=== PATIENT | female | born 1990 | race Caucasian/White ===

== ENCOUNTER 2021-12-08 21:24 | Emergency (ER) | payer SELFPAY ==
[~2021-12-08] VITALS: Ht 163 cm; Wt 91.0 kg
--- NOTE | 2021-12-08 21:59 | ED Cardiac General ---
History of Present Illness General Chief Complaint: Cardiac/General Problems Stated Complaint: HIGH HEART RATE History of Present Illness Date Seen by Provider: Dec 08, 2021 Time Seen by Provider: 21:58 Initial Comments 31-year-old female with no pertinent PMH, is here with complaints of tachycardia. Patient noticed her heart rate on her watch has been going up to 110, and she had 1 episode where it went to 130. Patient had COVID in June of this year, and has had intermittent tachycardia which lasts about a second or 2. Patient has not seen her PCP or cardiology about this. Patient has no prior cardiac history. Patient denies chest pain, fever, abdominal pain, thyroid disorder, nausea and vomiting, diaphoresis, dizziness. Allergies and Home Medications Allergies Coded Allergies: No Known Drug Allergies (Unverified , 12/08/21) Patient Home Medication List Home Medication List Reviewed: Yes Nitrofurantoin Macrocrystal (Nitrofurantoin) 100 Mg Capsule, 100 MG PO BID Prescribed by: IZZY HOFFMAN MD on 12/08/21 7042 Review of Systems Review of Systems Constitutional: no symptoms reported EENTM: No Symptoms Reported Respiratory: No Symptoms Reported Cardiovascular: Palpitations Gastrointestinal: No Symptoms Reported Genitourinary: No Symptoms Reported Musculoskeletal: no symptoms reported Skin: no symptoms reported Psychiatric/Neurological: No Symptoms Reported Endocrine: No Symptoms Reported Hematologic/Lymphatic: No Symptoms Reported Past Ilvmfpf-Drbtns-Pwpczl Hx Patient Social History Tobacco Use?: No Substance use?: No Alcohol Use?: No Pt feels they are or have been: No Immunizations Up To Date Influenza Vaccine Up-to-Date: No; Not Current First/Initial COVID19 Vaccinat: OCTOBER 2020 Second COVID19 Vaccination Alexis: NOVEMBER 2020 COVID19 Vaccine Scallop Cutter: VIVEK Past Medical History Surgery/Hospitalization HX: COVID- 19 Physical Exam Vital Signs Vital Signs - First Documented 12/08/21 21:48 Temp 36.8 Pulse 96 Resp 16 B/P (MAP) 143/78 (99) Capillary Refill : Height, Weight, BMI Height: '" Weight: lbs. oz. kg; BMI Method: General Appearance: No Apparent Distress, WD/WN HEENT: PERRL/EOMI, TMs Normal Neck: Full Range of Motion, Normal Inspection, Non Tender, Supple Respiratory: Chest Non Tender, Lungs Clear, Normal Breath Sounds Cardiovascular: Regular Rate, Rhythm, No Edema, No Murmur, Normal Peripheral Pulses Gastrointestinal: Normal Bowel Sounds, Non Tender, Soft Neurologic/Psychiatric: Alert, Oriented x3, No Motor/Sensory Deficits, Normal Mood/Affect Skin: Normal Color Progress/Results/Core Measures Results/Orders Lab Results Laboratory Tests Test 12/08/21 21:59 12/08/21 22:28 Range/Units White Blood Count 7.4 4.3-11.0 10^3/uL Red Blood Count 4.46 3.80-5.11 10^6/uL Hemoglobin 11.6 11.5-16.0 g/dL Hematocrit 36 35-52 % Mean Corpuscular Volume 81 80-99 fL Mean Corpuscular Hemoglobin 26 25-34 pg Mean Corpuscular Hemoglobin Concent 32 32-36 g/dL Red Cell Distribution Width 14.2 10.0-14.5 % Platelet Count 286 130-400 10^3/uL Mean Platelet Volume 10.2 9.0-12.2 fL Immature Granulocyte % (Auto) 0 % Neutrophils (%) (Auto) 55 42-75 % Lymphocytes (%) (Auto) 33 12-44 % Monocytes (%) (Auto) 10 0-12 % Eosinophils (%) (Auto) 1 0-10 % Basophils (%) (Auto) 0 0-10 % Neutrophils # (Auto) 4.1 1.8-7.8 10^3/uL Lymphocytes # (Auto) 2.5 1.0-4.0 10^3/uL Monocytes # (Auto) 0.7 0.0-1.0 10^3/uL Eosinophils # (Auto) 0.1 0.0-0.3 10^3/uL Basophils # (Auto) 0.0 0.0-0.1 10^3/uL Immature Granulocyte # (Auto) 0.0 0.0-0.1 10^3/uL Sodium Level 140 135-145 MMOL/L Potassium Level 3.5 L 3.6-5.0 MMOL/L Chloride Level 104 98-107 MMOL/L Carbon Dioxide Level 22 21-32 MMOL/L Anion Gap 14 5-14 MMOL/L Blood Urea Nitrogen 6 L 7-18 MG/DL Creatinine 0.70 0.60-1.30 MG/DL Estimat Glomerular Filtration Rate 117 BUN/Creatinine Ratio 9 Glucose Level 90 70-105 MG/DL Calcium Level 9.3 8.5-10.1 MG/DL Corrected Calcium 9.1 8.5-10.1 MG/DL Magnesium Level 1.8 1.6-2.4 MG/DL Total Bilirubin 0.9 0.1-1.0 MG/DL Aspartate Amino Transf (AST/SGOT) 17 5-34 U/L Alanine Aminotransferase (ALT/SGPT) 22 0-55 U/L Alkaline Phosphatase 59 40-136 U/L Troponin I < 0.028 <0.028 NG/ML Total Protein 7.2 6.4-8.2 GM/DL Albumin 4.3 3.2-4.5 GM/DL Thyroid Stimulating Hormone (TSH) 2.47 0.35-4.94 UIU/ML Free Thyroxine 1.32 0.70-1.48 NG/DL Serum Test, Qualitative NEGATIVE NEGATIVE Serum Alcohol < 10 <10 MG/DL Urine Color YELLOW Urine Clarity CLEAR Urine pH 6.5 5-9 Urine Specific [place] <=1.005 1.016-1.022 Urine Protein NEGATIVE NEGATIVE Urine Glucose (UA) NEGATIVE NEGATIVE Urine Ketones 2+ H NEGATIVE Urine Nitrite NEGATIVE NEGATIVE Urine Bilirubin NEGATIVE NEGATIVE Urine Urobilinogen 0.2 < = 1.0 MG/DL Urine Leukocyte Esterase 1+ H NEGATIVE Urine RBC (Auto) NEGATIVE NEGATIVE Urine RBC 0-2 /HPF Urine WBC 5-10 H /HPF Urine Squamous Epithelial Cells 5-10 /HPF Urine Renal Epithelial Cells NONE /HPF Urine Crystals NONE /LPF Urine Bacteria MODERATE H /HPF Urine Casts NONE /LPF Urine Mucus NEGATIVE /LPF Urine Culture Indicated YES Urine Opiates Screen NEGATIVE NEGATIVE Urine Oxycodone Screen NEGATIVE NEGATIVE Urine Methadone Screen NEGATIVE NEGATIVE Urine Propoxyphene Screen NEGATIVE NEGATIVE Urine Barbiturates Screen NEGATIVE NEGATIVE Ur Tricyclic Antidepressants Screen NEGATIVE NEGATIVE Urine Phencyclidine Screen NEGATIVE NEGATIVE Urine Amphetamines Screen NEGATIVE NEGATIVE Urine Methamphetamines Screen NEGATIVE NEGATIVE Urine Benzodiazepines Screen NEGATIVE NEGATIVE Urine Cocaine Screen NEGATIVE NEGATIVE Urine Cannabinoids Screen NEGATIVE NEGATIVE My Orders Orders - IZZY HOFFMAN MD Chest 1 View, Ap/Pa Only (12/08/21 22:07) Alcohol (12/08/21 22:13) Cbc With Automated Diff (12/08/21 22:13) Comprehensive Metabolic Panel (12/08/21 22:13) Drug Screen Stat (Urine) (12/08/21 22:13) Hcg,Qualitative Serum (12/08/21 22:13) Magnesium (12/08/21 22:13) Ua Culture If Indicated (12/08/21 22:13) Troponin I Nicki (12/08/21 22:13) Continuous Ekg Monitoring (12/08/21 22:15) Ekg Tracing (12/08/21 22:15) Thyroid Stimulating Hormone (12/08/21 22:15) Free T4 (Free Thyroxine) (12/08/21 22:15) Ed Iv/Invasive Line Start (12/08/21 22:16) Ns Iv 1000 Ml (Sodium Chloride 0.9%) (12/08/21 22:30) Urine Culture (12/08/21 22:28) Nitrofurantoin Capsule (Macrodantin Caps (12/08/21 23:27) Vital Signs/I&O 12/08/21 21:48 Temp 36.8 Pulse 96 Resp 16 B/P (MAP) 143/78 (99) Progress Progress Note : Progress Note 1. PAROXYSMAL TACHYCARDIA ON iWATCH, NORMAL HEART RATE IN ER: - CXR normal - Trop/ EKG normal - TSH and T4 vnormal - Electrolytes normal, normal white count - Follow up with PCP - Heart rate has been normal in th ER -The patient was seen in the ED, and treated appropriately to presentation at a specific point in time. Patient is informed that there is a possibility that disease and illness can evolve and change in acuity rapidly or slowly after patient is discharged from the ER. Precautionary advice given to the patient for immediate return to ER if symptoms worsen or do not resolve, and to seek emergency care sooner rather than later. Pt also advised on the importance of PCP follow up and compliance with management and follow up plan with PCP and/or specialist, as this is part of the management plan. Pt verbally expressed understanding. 2. ACUTE CYSTITIS: - UA positive for LE, WBC Nitrofurantoin 100mg bid for 7 days Adequate water intake , 8 glasses a day, is improtant Initial ECG Impression Date: Dec 08, 2021 Initial ECG Impression Time: 22:23 Initial ECG Rate: 81 Initial ECG Rhythm: Normal Sinus Diagnostic Imaging Diagonstic Imaging: Xray Plain Films/CT/US/NM/MRI: chest Comments [facility], [place] NAME: IRENE BELTRÁN [facility] REC#: [id number] PT STATUS: REG ER : 1990 PHYSICIAN: IZZY HOFFMAN MD ADMIT DATE: 12/08/21/ER Draft Date of Exam:12/08/21 CHEST 1 VIEW, AP/PA ONLY EXAM: CHEST 1 VIEW, AP/PA ONLY INDICATION: Palpitations. Chest pain. COMPARISON: None. FINDINGS: Normal heart size and pulmonary vascularity. No dense consolidation, pleural effusion or pneumothorax. No acute osseous findings. IMPRESSION: No acute cardiopulmonary findings. Dictated on workstation # [id number] Dict: 12/08/212255 Trans: 12/08/212256 [facility] [id number] Interpreted by: CHARMAINE WOODSON MD Electronically signed by: Departure Impression Primary Impression: Tachycardia, paroxysmal Additional Impression: Acute cystitis Qualified Codes: N30.00 - Acute cystitis without hematuria Disposition: HOME, SELF-CARE Condition: Stable Departure-Patient Inst. Patient Instructions: Acute Cystitis (DC), Urinary Tract Infection, Adult (DC) Add. Discharge Instructions: Nitrofurantoin 100mg bid for 7 days Adequate water intake , 8 glasses a day, is improtant Follow up with PCP - Heart rate has been normal in ER - Return to ER if symptoms worsen All discharge instructions reviewed with patient and/or family. Voiced understanding. Scripts Nitrofurantoin Macrocrystal (Nitrofurantoin) 100 Mg Capsule 100 MG PO BID for 7 Days, #14 CAP Prov: IZZY HOFFMAN MD 12/08/21 IZZY HOFFMAN MD Dec 08, 2021 21:59
[2021-12-08 22:25] LABS: BASOPHILS % (AUTO) 0 % (0-10); EOSINOPHILS # (AUTO) 0.1 10^3/uL (0.0-0.3); EOSINOPHILS % (AUTO) 1 % (0-10); HEMATOCRIT 36 % (35-52); HEMOGLOBIN 11.6 g/dL (11.5-16.0); LYMPHOCYTES # (AUTO) 2.5 10^3/uL (1.0-4.0); LYMPHOCYTES % (AUTO) 33 % (12-44); MEAN CORPUSCULAR HEMOGLOBIN 26 pg (25-34); MEAN CORPUSCULAR HGB CONC 32 g/dL (32-36); MEAN CORPUSCULAR VOLUME 81 fL (80-99); MEAN PLATELET VOLUME 10.2 fL (9.0-12.2); MONOCYTES # (AUTO) 0.7 10^3/uL (0.0-1.0); MONOCYTES % (AUTO) 10 % (0-12); NEUTROPHILS # (AUTO) 4.1 10^3/uL (1.8-7.8); NEUTROPHILS % (AUTO) 55 % (42-75); PLATELET COUNT 286 10^3/uL (130-400); WHITE BLOOD COUNT 7.4 10^3/uL (4.3-11.0)
[2021-12-08] MEDS ORDERED: NS IV 1000 ML 1,000 ML IV SCH (22:30)
[2021-12-08 22:34] LABS: BILIRUBIN,URINE NEGATIVE (NEGATIVE); CLARITY,URINE CLEAR; COLOR,URINE YELLOW; GLUCOSE, URINE (UA) NEGATIVE (NEGATIVE); KETONES,URINE 2+ (NEGATIVE); LEUKOCYTE ESTERASE ,URINE 1+ (NEGATIVE); NITRITE,URINE NEGATIVE (NEGATIVE); PH,URINE 6.5 (5-9); PROTEIN,URINE NEGATIVE (NEGATIVE)
[2021-12-08 22:35] LABS: ALBUMIN 4.3 GM/DL (3.2-4.5); CHLORIDE 104 MMOL/L (98-107); POTASSIUM 3.5 MMOL/L (3.6-5.0); SODIUM 140 MMOL/L (135-145)
[2021-12-08 22:36] LABS: CALCIUM 9.3 MG/DL (8.5-10.1)
[2021-12-08 22:37] LABS: GLUCOSE 90 MG/DL (70-105)
[2021-12-08 22:38] LABS: CARBON DIOXIDE 22 MMOL/L (21-32); TOTAL PROTEIN 7.2 GM/DL (6.4-8.2)
[2021-12-08 22:39] LABS: BILIRUBIN,TOTAL 0.9 MG/DL (0.1-1.0)
[2021-12-08 22:41] LABS: ALKALINE PHOSPHATASE 59 U/L (40-136); GFR ESTIMATED 117
[2021-12-08 22:41] LABS: BACTERIA,URINE MODERATE /HPF; RBC,URINE 0-2 /HPF
[2021-12-08 22:42] LABS: BUN/CREATININE RATIO 9
[2021-12-08 22:44] LABS: ALANINE AMINOTRANSFERASE 22 U/L (0-55); MAGNESIUM 1.8 MG/DL (1.6-2.4)
[2021-12-08 22:48] LABS: AMPHETAMINE SCREEN, URINE NEGATIVE (NEGATIVE); BARBITURATE SCREEN URINE NEGATIVE (NEGATIVE); BENZODIAZEPINES SCREEN URINE NEGATIVE (NEGATIVE); CANNABINOID SCREEN, URINE NEGATIVE (NEGATIVE); COCAINE SCREEN URINE NEGATIVE (NEGATIVE); METHADONE STAT NEGATIVE (NEGATIVE); OPIATE SCREEN URINE NEGATIVE (NEGATIVE); OXYCODONE STAT NEGATIVE (NEGATIVE); PROPOXYPHENE STAT NEGATIVE (NEGATIVE); TRICYCLIC ANTIDEPRESSANTS SCRE NEGATIVE (NEGATIVE)
--- NOTE | 2021-12-08 22:58 | Diagnostic Imaging Report ---
EXAM: CHEST 1 VIEW, AP/PA ONLY INDICATION: Palpitations. Chest pain. COMPARISON: None. FINDINGS: Normal heart size and pulmonary vascularity. No dense consolidation, pleural effusion or pneumothorax. No acute osseous findings. IMPRESSION: No acute cardiopulmonary findings. Dictated by: Dictated on workstation # [id number]
[2021-12-08 23:04] LABS: FREE T4 (FREE THYROXINE) 1.32 NG/DL (0.70-1.48)
[2021-12-08] MEDS ORDERED: NITROFURANTOIN 50 MG (MACRODANTIN) CAP PO STA (23:27)
[2021-12-08] MEDS ORDERED: NITR100C PO (23:31)
[2021-12-08] MEDS ORDERED: NITROFURANTOIN 100 MG (MACROBID) CAPSULE PO ONE (23:53)
[2021-12-09] VITALS: BP 111/66
== END 2021-12-09 00:04 | disposition home or self-care (01) ==
LOC: ER 21:27
DX: I47.9 Paroxysmal tachycardia, unspecified (principal); N30.00 Acute cystitis without hematuria
CPT/HCPCS: 71045; 80053; 80306; 81000; 83735; 84439; 84443; 84484; 84703; 85025; 87088; 93005; 99284; G0480; 36415; 80320

== ENCOUNTER 2022-01-12 19:47 | Emergency (ER) | payer SELFPAY ==
[~2022-01-12] VITALS: Ht 167.7 cm; Wt 86.8 kg
[~2022-01-12 19:47] MED LIST: NITR100C PO
[2022-01-12] MEDS ORDERED: LIDOCAINE 2% VISCOUS 15 ML UDC PO ONE (20:15)
[2022-01-12] MEDS ORDERED: ANTACID SUSP 30 ML UDC (MYLANTA) PO ONE (20:15)
--- NOTE | 2022-01-12 20:38 | ED Abdominal Pain ---
General Chief Complaint: Abdominal/GI Problems Stated Complaint: INDIGESTION, ARM FALLING ASLEEP Nursing Triage Note: PT ARRIVAL TO ER WITH COMPLAINT OF HEART BURN X8 DAYS. PT WENT TO WALK IN CLINIC AND WAS STARTED ON CARAFATE, BUT DENIES HAVING ANY ULCERS. PT STATES THAT SHE HAS BEEN ONLY EATING ONE MEAL A DAY SINCE THE December AND HAS LOST OVER 10 LBS SINCE THEN. Source of Information: Patient Exam Limitations: No Limitations (HARLEY RESTREPO) History of Present Illness Date Seen by Provider: Jan 12, 2022 Time Seen by Provider: 20:37 Initial Comments Patient is a 31-year-old female who presents ED with indigestion, upper and right upper quad abdominal pain. Pain has been intermittent over the past week. She states it seems to be worse with eating and relieves itself after a few hours but does return periodically. Nausea without vomiting or diarrhea. No previous abdominal surgery. She went to [facility] last week was placed on Carafate concern for peptic ulcer. Denies of any dark tarry stool. No radiating pain to her shoulder or back. Denies history excessive alcohol use, drug use. She has changed her diet without much improvement. Denies of any chest pain, shortness of breath, cough, fever. Denies any urinary symptoms. Started taking omeprazole about a month ago. No history of GERD or acid reflux in the past. Pain does not appear to radiate up into the chest after eating. Not concern for . No dysuria, hematuria, vaginal discharge, vaginal bleeding (HARLEY RESTREPO) Allergies and Home Medications Allergies Coded Allergies: No Known Drug Allergies (Unverified , 12/08/21) Patient Home Medication List Home Medication List Reviewed: Yes (HARLEY RESTREPO) Nitrofurantoin Macrocrystal (Nitrofurantoin) 100 Mg Capsule, 100 MG PO BID Prescribed by: IZZY HOFFMAN MD on 12/08/21 2331 Pantoprazole Sodium (Protonix) 40 Mg Tablet.dr, 40 MG PO DAILY Prescribed by: GEORGE LEMA on 01/12/222118 Review of Systems Review of Systems Constitutional: No chills, No diaphoresis, No malaise, No weakness EENTM: No Double Vision, No Eye Pain Respiratory: Denies Cough, Denies Orthopnea Cardiovascular: Denies Chest Pain, Denies Edema, Denies Irregular Heart Rate Gastrointestinal: Abdominal Pain; Denies Diarrhea; Nausea; Denies Rectal Bleeding, Denies Vomiting Genitourinary: Denies Burning, Denies Discharge Musculoskeletal: No back pain, No joint pain (HARLEY RESTREPO) All Other Systems Reviewed Negative Unless Noted: Yes (HARLEY RESTREPO) Past Jgaenia-Pumkva-Kjndwo Hx Patient Social History Tobacco Use?: No Use of E-Cig and/or Vaping dev: No Substance use?: No Alcohol Use?: No Pt feels they are or have been: No (HARLEY RESTREPO) Immunizations Up To Date Influenza Vaccine Up-to-Date: No; Not Current First/Initial COVID19 Vaccinat: OCTOBER 2020 Second COVID19 Vaccination Alexis: NOVEMBER 2020 Third COVID19 Vaccination Date: OCTOBER 2020 (HARLEY RESTREPO) Past Medical History Surgery/Hospitalization HX: COVID- 19 (HARLEY RESTREPO) Physical Exam Vital Signs Vital Signs - First Documented 01/12/22 20:02 Temp 37.2 Pulse 76 Resp 18 B/P (MAP) 130/85 (100) Pulse Ox 97 O2 Delivery Room Air (IZZY HOFFMAN MD) Vital Signs Capillary Refill : Less Than 3 Seconds (HARLEY RESTREPO) Height/Weight/BMI Height: '" Weight: lbs. oz. kg; 30.00 BMI Method: General Appearance: WD/WN, no apparent distress HEENT: PERRL/EOMI, normal ENT inspection, TMs normal, pharynx normal Neck: non-tender, full range of motion, supple, normal inspection Respiratory: chest non-tender, lungs clear, normal breath sounds, no respiratory distress, no accessory muscle use Cardiovascular: regular rate, rhythm, no edema, no gallop, no JVD Gastrointestinal: normal bowel sounds, non tender, soft, no organomegaly Extremities: normal range of motion, non-tender, normal inspection, no pedal edema Back: normal inspection, no CVA tenderness, no vertebral tenderness Neurologic/Psychiatric: intern architect II-XII nml as tested, no motor/sensory deficits, alert, normal mood/affect, oriented x 3 Skin: normal color, warm/dry (HARLEY RESTREPO) Progress/Results/Core Measures Results/Orders Lab Results Laboratory Tests Test 01/12/22 20:40 Range/Units White Blood Count 7.7 4.3-11.0 10^3/uL Red Blood Count 4.55 3.80-5.11 10^6/uL Hemoglobin 11.8 11.5-16.0 g/dL Hematocrit 36 35-52 % Mean Corpuscular Volume 80 80-99 fL Mean Corpuscular Hemoglobin 26 25-34 pg Mean Corpuscular Hemoglobin Concent 33 32-36 g/dL Red Cell Distribution Width 14.3 10.0-14.5 % Platelet Count 291 130-400 10^3/uL Mean Platelet Volume 10.2 9.0-12.2 fL Immature Granulocyte % (Auto) 0 % Neutrophils (%) (Auto) 56 42-75 % Lymphocytes (%) (Auto) 32 12-44 % Monocytes (%) (Auto) 11 0-12 % Eosinophils (%) (Auto) 1 0-10 % Basophils (%) (Auto) 0 0-10 % Neutrophils # (Auto) 4.3 1.8-7.8 10^3/uL Lymphocytes # (Auto) 2.4 1.0-4.0 10^3/uL Monocytes # (Auto) 0.8 0.0-1.0 10^3/uL Eosinophils # (Auto) 0.1 0.0-0.3 10^3/uL Basophils # (Auto) 0.0 0.0-0.1 10^3/uL Immature Granulocyte # (Auto) 0.0 0.0-0.1 10^3/uL Sodium Level 139 135-145 MMOL/L Potassium Level 3.2 L 3.6-5.0 MMOL/L Chloride Level 103 98-107 MMOL/L Carbon Dioxide Level 19 L 21-32 MMOL/L Anion Gap 17 H 5-14 MMOL/L Blood Urea Nitrogen 7 7-18 MG/DL Creatinine 0.73 0.60-1.30 MG/DL Estimat Glomerular Filtration Rate 111 BUN/Creatinine Ratio 10 Glucose Level 88 70-105 MG/DL Calcium Level 9.3 8.5-10.1 MG/DL Corrected Calcium 9.1 8.5-10.1 MG/DL Total Bilirubin 0.8 0.1-1.0 MG/DL Aspartate Amino Transf (AST/SGOT) 15 5-34 U/L Alanine Aminotransferase (ALT/SGPT) 16 0-55 U/L Alkaline Phosphatase 65 40-136 U/L Total Protein 7.2 6.4-8.2 GM/DL Albumin 4.3 3.2-4.5 GM/DL Lipase 30 8-78 U/L (IZZY HOFFMAN MD) Medications Given in ED Current Medications Medications Dose Ordered Sig/Jamilah Route Start Time Stop Time Status Last Admin Dose Admin Al Hydrox/Mg Hydrox/Simethicone 30 ml ONCE ONCE PO 01/12/22 20:15 01/12/22 20:16 DC 01/12/22 20:14 30 ML Lidocaine HCl 15 ml ONCE ONCE PO 01/12/22 20:15 01/12/22 20:16 DC 01/12/22 20:14 15 ML (IZZY HOFFMAN MD) Vital Signs/I&O 01/12/22 01/12/22 20:02 21:45 Temp 37.2 Pulse 76 71 Resp 18 18 B/P (MAP) 130/85 (100) 127/83 Pulse Ox 97 97 O2 Delivery Room Air Room Air (IZZY HOFFMAN MD) Blood Pressure Mean: 100 Departure Communication (PCP) Patient was given a GI cocktail with improvement of pain. She has epigastric and right upper quadrant pain for the past week. Has changed her diet without much improvement. Currently on omeprazole. She was started on Carafate. No dark tarry stool. Patient denies chest pain or shortness of breath. Has been taking Gas-X as well. History of lactose intolerant. Patient lab work was otherwise unremarkable. Normal white blood count and liver enzymes. She had no specific tenderness on palpation. Normal lipase. Due to reassuring lab work a nd currently asymptomatic patient can be follow-up outpatient Patricio. Ordered an outpatient ultrasound of her gallbladder. Discussed potential etiologies such as biliary colic, gallbladder disease, gastritis, GERD, hiatal hernia, esophagitis, H. pylori. Patient will need establish care with a primary care physician. She was requesting something different than the omeprazole. We will try Protonix. Discussed continue with diet changes avoid eating late at night. Recommend more of a clear liquid and increase to more of a bland diet. Discussed with patient that if this is secondary to gallbladder versus GERD or potential ulcer pain may take some time to improve. If this pain progress may benefit with EGD for further evaluation as well. If any worsening pain to return back to ED for further evaluation. She states she had a cardiac work-up that was unremarkable. Low risk for coronary artery disease. Low heart score. She has no current chest pain, shortness of breath or cough. Symptoms appear to be more GI related (HARLEY RESTREPO) Impression Primary Impression: Abdominal pain Disposition: HOME, SELF-CARE Condition: Stable Departure-Patient Inst. Decision time for Depature: 21:18 (HARLEY RESTREPO) Referrals: [facility]/JORGE VILLARREAL MD NO,LOCAL PHYSICIAN (PCP) Primary Care Physician Patient Instructions: Abdominal Pain, Adult ED Scripts Pantoprazole Sodium (Protonix) 40 Mg Tablet. 40 MG PO DAILY, #20 TAB Prov: HARLEY RESTREPO 01/12/22 PHYSICIAN ATTESTATION NOTE: I was present in the ER while PROPERTY PRESERVATION SPECIALIST / PA saw the patient, but I was not involved in the care, exam, or management of the patient. (IZZY HOFFMAN MD) HARLEY RESTREPO Jan 12, 2022 20:38 IZZY HOFFMAN MD Jan 13, 2022 05:44
[2022-01-12 20:53] LABS: BASOPHILS % (AUTO) 0 % (0-10); EOSINOPHILS # (AUTO) 0.1 10^3/uL (0.0-0.3); EOSINOPHILS % (AUTO) 1 % (0-10); HEMATOCRIT 36 % (35-52); HEMOGLOBIN 11.8 g/dL (11.5-16.0); LYMPHOCYTES # (AUTO) 2.4 10^3/uL (1.0-4.0); LYMPHOCYTES % (AUTO) 32 % (12-44); MEAN CORPUSCULAR HEMOGLOBIN 26 pg (25-34); MEAN CORPUSCULAR HGB CONC 33 g/dL (32-36); MEAN CORPUSCULAR VOLUME 80 fL (80-99); MEAN PLATELET VOLUME 10.2 fL (9.0-12.2); MONOCYTES # (AUTO) 0.8 10^3/uL (0.0-1.0); MONOCYTES % (AUTO) 11 % (0-12); NEUTROPHILS # (AUTO) 4.3 10^3/uL (1.8-7.8); NEUTROPHILS % (AUTO) 56 % (42-75); PLATELET COUNT 291 10^3/uL (130-400); WHITE BLOOD COUNT 7.7 10^3/uL (4.3-11.0)
[2022-01-12 21:03] LABS: ALBUMIN 4.3 GM/DL (3.2-4.5); BILIRUBIN,TOTAL 0.8 MG/DL (0.1-1.0); CALCIUM 9.3 MG/DL (8.5-10.1); CREATININE SERUM 0.73 MG/DL (0.60-1.30); POTASSIUM 3.2 MMOL/L (3.6-5.0); TOTAL PROTEIN 7.2 GM/DL (6.4-8.2)
[2022-01-12] MEDS ORDERED: PANT40TA2 PO (21:19)
[2022-01-12 21:45] VITALS: BP 127/83
== END 2022-01-12 21:45 | disposition home or self-care (01) ==
LOC: EDUNIT# 19:47 → ER 19:51
DX: R10.13 Epigastric pain (principal); Z86.16 Personal history of COVID-19
CPT/HCPCS: 36415; 80053; 83690; 85025; 99283

== ENCOUNTER → 2022-01-13 | Outpatient (CLI) | payer SELFPAY ==
[~2022-01-13] MED LIST changes: +PANT40TA2 PO
--- NOTE | 2022-01-13 12:07 | Diagnostic Imaging Report ---
PROCEDURE: US Gallbladder. TECHNIQUE: Multiple real-time grayscale images were obtained over the right upper quadrant in various projections. INDICATION: Abdominal pain. The liver is normal in size at approximately 16 cm. The portal vein is patent and shows normal direction of flow. No liver mass is detected. Gallbladder is without stones or sludge. No wall thickening or biliary ductal dilatation is seen. The visualized pancreas is unremarkable. Aorta is nonaneurysmal. IVC is patent. Right kidneys without calculi or hydronephrosis. There is no ascites. IMPRESSION: No evidence of cholelithiasis or acute cholecystitis. Dictated by: Dictated on workstation # [id number]
== END ==
LOC: RAD 11:00
PROVIDERS: ATTEND Family Medicine
DX: R10.9 Unspecified abdominal pain (principal)
CPT/HCPCS: 76705

== ENCOUNTER 2022-04-05 19:31 | Emergency (ER) | payer BC ==
[2022-04-05] MEDS ORDERED: ANTACID SUSP 30 ML UDC (MYLANTA) PO ONE (21:15)
[2022-04-05] MEDS ORDERED: ALPRAZolam 0.5 MG (XANAX) TAB ONE (22:29)
[2022-04-05 22:45] VITALS: BP 122/75
--- NOTE | 2022-04-05 22:46 | ED Abdominal Pain ---
General Chief Complaint: Abdominal/GI Problems Stated Complaint: ACID REFLEX Nursing Triage Note: PT AMB TO FT WITH C/O ACID REFLUX AFTER EATING CHEESE AND CRACKERS THIS EVENING. PT STATES SHE TOOK ROLAIDS BEFORE COMING TO ER AND TAKES NEXIUM IN THE MORNINGS Source of Information: Patient Exam Limitations: No Limitations History of Present Illness Date Seen by Provider: Apr 05, 2022 Time Seen by Provider: 20:15 Initial Comments This is a 31-year-old female who presented to the ER with concerns for persistent acid reflux and anxiety. States that she has been having acid reflux for several months and has tried multiple medications for symptom relief. Takes tums & rolaids OTC, Esomeprazole and continues to have persistent symptoms. States she has lost 80 pounds due to her symptoms. She follows with [facility] and reports all of her blood work is unremarkable, her vitals are always "horrible", she was prescribed hydroxyzine for anxiety but states all this does make her sleepy. States that she was given referral to general surgery for potential EGD, unsure of which surgeon referral was sent to. Expresses frustration that "no one is helping me find the problem, all they do is keep giving me medication and more and more medication". Allergies and Home Medications Allergies Coded Allergies: No Known Drug Allergies (Unverified , 12/08/21) Patient Home Medication List Home Medication List Reviewed: Yes Alprazolam (Xanax) 0.5 Mg Tablet, 0.5 MG PO Q12H PRN for ANXIETY Prescribed by: SVEN SOLIZ on 04/06/22 0821 Nitrofurantoin Macrocrystal (Nitrofurantoin) 100 Mg Capsule, 100 MG PO BID Prescribed by: IZZY HOFFMAN MD on 12/08/21 2331 Pantoprazole Sodium (Protonix) 40 Mg Tablet.dr 40 MG PO DAILY Prescribed by: GEORGE LEMA on 01/12/222118 Past Gmyhsnp-Xhafyf-Fmdtll Hx Patient Social History Tobacco Use?: No Use of E-Cig and/or Vaping dev: No Substance use?: No Alcohol Use?: No Pt feels they are or have been: No Immunizations Up To Date First/Initial COVID19 Vaccinat: OCTOBER 2020 Second COVID19 Vaccination Alexis: NOVEMBER 2020 Third COVID19 Vaccination Date: OCTOBER 2020 COVID19 Vaccine Respite Care Provider: MODERNA Past Medical History Surgery/Hospitalization HX: COVID- 19, ACID REFLUX, ANXIETY Physical Exam Vital Signs Vital Signs - First Documented 04/05/22 04/05/22 19:53 22:45 Temp 36.9 Pulse 91 Resp 16 B/P (MAP) 127/76 (93) Pulse Ox 99 Capillary Refill : Height/Weight/BMI Height: '" Weight: lbs. oz. kg; 30.00 BMI Method: Progress/Results/Core Measures Results/Orders My Orders Orders - SVEN SOLIZ FLAT BREAKDOWN PROCESSOR Antacid Suspension (Mylanta Suspension (04/05/22 21:15) Alprazolam Tablet (Xanax Tablet) (04/05/22 22:29) Medications Given in ED Current Medications Medications Dose Ordered Sig/Jamilah Route Start Time Stop Time Status Last Admin Dose Admin Alprazolam 0.5 mg STK-MED ONCE .ROUTE 04/05/22 22:29 04/05/22 22:37 DC 04/05/22 22:30 0.5 MG Vital Signs/I&O 04/05/22 04/05/22 19:53 22:45 Temp 36.9 Pulse 91 83 Resp 16 16 B/P (MAP) 127/76 (93) 122/75 Pulse Ox 99 Blood Pressure Mean: 93 Departure Impression Primary Impression: Acid reflux disease Additional Impression: Anxiety Disposition: 01 HOME, SELF-CARE Condition: Improved Departure-Patient Inst. Decision time for Depature: 22:29 Referrals: NO,LOCAL PHYSICIAN (PCP/Family) Primary Care Physician Patient Instructions: Anxiety, Adult (DC) Add. Discharge Instructions: Plan: 1. Follow up with Dr. Flores for your persistent acid reflux. Will attempt to schedule a follow up appointment in am. 2. Continue your home Nexium as previously directed. 3. Stop your Hydroxyzine and you can trial Xanax, you will need to visit with your doctor about further management. 4. Return to ER for any new, concerning, or worsening symptoms. All discharge instructions reviewed with patient and/or family. Voiced understanding. Scripts Alprazolam (Xanax) 0.5 Mg Tablet 0.5 MG PO Q12H PRN for ANXIETY, #10 TAB 0 Refills Prov: SVEN SOLIZ APRN 04/06/22 SVEN SOLIZ APRN Apr 05, 2022 22:46
[2022-04-06] MEDS ORDERED: ALPR0.5T PO (08:20)
== END 2022-04-05 22:39 | disposition home or self-care (01) ==
LOC: EDUNIT# 19:31 → ER 19:34
DX: K21.9 Gastro-esophageal reflux disease without esophagitis (principal); F41.9 Anxiety disorder, unspecified; Z86.16 Personal history of COVID-19
CPT/HCPCS: 99283

== ENCOUNTER 2022-04-11 09:31 | Outpatient (CLI) | payer BC ==
[~2022-04-11] VITALS: Ht 165.6 cm; Wt 86.2 kg
[~2022-04-11 09:31] MED LIST changes: +ALPR0.5T PO
[2022-04-11] MEDS ORDERED: [UNRECOGNIZED DRUG - CODE] PO (12:00)
[2022-04-11] MEDS ORDERED: ESOM20CA PO (12:00)
== END 2022-04-11 13:28 | disposition home or self-care (01) ==
LOC: PREOP 09:31
PROVIDERS: ATTEND Surgery
DX: Z01.818 Encounter for other preprocedural examination (principal)

== ENCOUNTER 2022-04-12 11:57 | Day surgery (SDC) | payer BC ==
[~2022-04-12] VITALS: Ht 166 cm; Wt 86.2 kg
[~2022-04-12 11:57] MED LIST changes: +ESOM20CA PO; +[UNRECOGNIZED DRUG - CODE] PO
[2022-04-12] MEDS ORDERED: LACTATED RINGERS 1,000 ML IV STA (12:27)
[2022-04-12] MEDS ORDERED: HURRICAINE EXT TUBE (BENZOCAINE) XX PRN (12:30)
[2022-04-12] MEDS ORDERED: LIDOCAINE JELLY 2% 6 ML SYRINGE MM PRN (12:30)
[2022-04-12 12:40] VITALS: BP 113/78
--- NOTE | 2022-04-12 12:55 | Progress Note-Pre Operative ---
Pre-Operative Progress Note Date of Available H&P: Apr 12, 2022 Date H&P Reviewed: Apr 12, 2022 Time H&P Reviewed: 12:30 History & Physical: No changes noted Pre-Operative Diagnosis: JORGE HAY MD Apr 12, 2022 12:55
--- NOTE | 2022-04-12 12:56 | Discharge Inst-Surgical ---
D/C Lap Instructions-STACIA Follow Up Activity as tolerated High Fiber Diet 25g or more per day Avoid Alcohol, Caffeine, Spicy [place] and Acid foods. Drink 64 fluid oz or more of fluids per day. Symptoms to Report: Fever over 101 degree F, Nausea/Vomiting If any problems/questions: Contact your physician or go to Emergency Room JORGE PALOMO MD Apr 12, 2022 12:56
[2022-04-12] MEDS ORDERED: ONDANSETRON 4 MG/2 ML (SDV) Z0FRAN IVP PRN (13:00)
[2022-04-12] MEDS ORDERED: ONDANSETRON 4 MG (ZOFRAN) ORAL DISSOLVE TAB PO PRN (13:00)
[2022-04-12] MEDS ORDERED: LACTATED RINGERS 1,000 ML IV ONE (13:09)
[2022-04-12] MEDS ORDERED: LIDOCAINE JELLY 2% 6 ML SYRINGE ONE (13:57)
[2022-04-12] MEDS ORDERED: HURRICAINE EXT TUBE (BENZOCAINE) ONE (13:57)
[2022-04-12] MEDS ORDERED: proPOfol 200 MG/20 ML (DIPRIVAN) VIAL IV ONE (13:58)
[2022-04-12] MEDS ORDERED: MIDAZOLAM 2 MG/2 ML (VERSED) VIAL ONE (13:58)
[2022-04-12 14:17] VITALS: BP 134/82
[2022-04-12 14:22] VITALS: BP 107/72
[2022-04-12 14:25] VITALS: BP 107/72
--- NOTE | 2022-04-12 14:29 | Progress Note-Post Operative ---
Post-Operative Progess Note Surgeon (s)/Powerhouse Tender (s) Surgeon JORGE PALOMO MD Powerhouse Tender: none Pre-Operative Diagnosis GERD Post-Operative Diagnosis reflux esophagitis(grade B), moderate type 1 HH(3cm), mild-mod gastritis. Procedure & Operative Findings Date of Procedure 04/12/22 Procedure Performed/Findings EGD with bx. Anesthesia Type mac Estimated Blood Loss Estimated blood loss (mL): minimal Specimens/Packing Specimens Removed ge jxn, antrum JORGE PALOMO MD Apr 12, 2022 14:29
--- NOTE | 2022-04-12 14:31 | Anesthesia-General Post-Op ---
MAC Patient Condition Mental Status/LOC: Same as Preop Cardiovascular: Satisfactory Nausea/Vomiting: Absent Respiratory: Satisfactory Pain: Controlled Complications: Absent Post Op Complications Complications None Follow Up Care/Instructions Patient Instructions None needed. Anesthesiology Discharge Order Discharge Order Patient is doing well, no complaints, stable vital signs, no apparent adverse anesthesia problems. No complications reported per nursing. KASIA ABBOTT CRNA Apr 12, 2022 14:31
[2022-04-12 14:58] VITALS: BP 107/72
--- NOTE | 2022-04-13 00:03 | OPERATIVE REPORT ---
DATE OF SERVICE: 04/12/2022 ATTENDING PRIMARY CARE PHYSICIAN: Dr. Simeon Lakhani. PREOPERATIVE DIAGNOSES: Gastroesophageal reflux disease, weight loss, nausea. POSTOPERATIVE DIAGNOSES: Reflux esophagitis, [place] grade B, moderate sized type 1 sliding hiatal hernia approximately 3 cm in size, mild gastritis. No distal obstructions. PROCEDURE: EGD with biopsy. SURGEON: Jorge Palomo MD. ANESTHESIA: Monitored anesthesia care. ESTIMATED BLOOD LOSS: Minimal. FINDINGS: Reflux esophagitis, [place] grade B, moderate sized type 1 sliding hiatal hernia approximately 3 cm in size, mild gastritis. No distal obstructions. DISPOSITION: The patient tolerated the procedure well. INDICATIONS: The patient is a 31-year-old female referred over to us for reflux as well as intermittent nausea and weight loss. She states that she has been on many different proton pump inhibitors for her gastroesophageal reflux disease; however, she tends to continue to have her symptoms. She is currently on Nexium 40 mg daily. She did have worse symptoms at one point and presented to the Emergency Department. An ultrasound was performed, which did not show any gallstones. She is currently scheduled for a HIDA scan at the end of this month. DESCRIPTION OF PROCEDURE: The patient was brought to the endoscopy suite, laid in the left lateral decubitus position. After adequate IV pain and sedative medications and monitored anesthesia care, the mouthpiece was applied. The endoscope was placed in the mouth, visualizing the pharynx and hypopharyngeal region. Vocal cords, epiglottis and vallecula identified and appeared to be normal. The endoscope was then gently intubated into the esophageal opening and esophagus insufflated. The endoscope was then advanced through the first, second and third portions of esophagus at the level of the GE junction, a reflux esophagitis, [place] grade B identified. No ulcers or strictures identified in this region. A biopsy was taken of the GE junction with forceps with visualization of good hemostasis. The endoscope was then advanced into the stomach and endoscope retroflexed, visualizing a moderate-sized type 1 sliding hiatal hernia approximately 3 cm in size. There was a mild to moderate gastritis. No ulcers, polyps, or any neoplasms. A biopsy was taken of the antrum to rule out H. pylori with visualization of good hemostasis. The endoscope was then advanced to the pylorus and the first and second portion of the duodenum, which appeared normal with no distal obstructions. Endoscope was then slowly withdrawn while taking a second look and suctioning of residual air with no additional findings. The patient tolerated the procedure well. We will await the biopsy results; however, we will have her continue with medical management, which would include small and more frequent meals, avoidance of eating at night as well as head elevation while lying supine. We also recommend decreasing or stopping caffeinated beverages, spicy, greasy and acidic foods. Continued weight loss would also help with her symptomatology. We feel that there may be a gallbladder component to this as well and we will await the results of the HIDA scan. Job ID: [id number] DocumentID: [id number] Dictated Date: 04/12/2022 14:17:26 Chief Service Dispatcher Date: 04/13/2022 00:02:52 Dictated By: JORGE PALOMO MD
== END 2022-04-12 14:58 | disposition home or self-care (01) ==
LOC: ENDO 11:57
PROVIDERS: ATTEND Surgery
DX: K21.00 Gastro-esophageal reflux disease with esophagitis, without bleeding (principal); K44.9 Diaphragmatic hernia without obstruction or gangrene; K29.50 Unspecified chronic gastritis without bleeding; Z79.899 Other long term (current) drug therapy; Z28.310 Unvaccinated for COVID-19
CPT/HCPCS: 84703

== ENCOUNTER → 2022-04-24 | Outpatient (CLI) | payer BC ==
[~2022-04-24] MED LIST changes: +CATHETER FLUSH 10 ML SYR IVP PRN
--- NOTE | 2022-04-24 11:46 | Diagnostic Imaging Report ---
INDICATION: Right upper quadrant pain. Patient was administered 5.5 mCi technetium 99m Choletec intravenously and imaging over the abdomen was performed. At 60 minutes patient ingested Ensure and gallbladder ejection fraction was calculated. There is homogeneous uptake of activity by the liver with prompt excretion of activity into the gallbladder and common duct. There is passage of activity into the small bowel. Gallbladder ejection fraction is abnormally low at 16%. Normal values are 35% or greater. IMPRESSION: 1. Patent cystic duct and common bile duct. 2. Low gallbladder ejection fraction of 16%. Dictated by: Dictated on workstation # [id number]
== END ==
LOC: CARD 09:07
PROVIDERS: ATTEND Surgery
DX: R10.11 Right upper quadrant pain (principal); R11.2 Nausea with vomiting, unspecified
CPT/HCPCS: 78227; A9537

== ENCOUNTER 2022-04-26 10:11 | Outpatient (CLI) | payer BC ==
[~2022-04-26] VITALS: Ht 162.6 cm; Wt 85.0 kg
[~2022-04-26 10:11] MED LIST changes: -CATHETER FLUSH 10 ML SYR IVP PRN
[2022-04-27] MEDS ORDERED: TRM50T PO (10:51)
[2022-04-27] MEDS ORDERED: FLUT9.9S NS (12:06)
== END 2022-04-26 11:12 | disposition home or self-care (01) ==
LOC: PREOP 10:11
PROVIDERS: ATTEND Surgery
DX: Z01.818 Encounter for other preprocedural examination (principal)

== ENCOUNTER 2022-04-27 10:31 | Day surgery (SDC) | payer BC ==
[2022-04-27] VITALS (11 sets, daily range): BP systolic 109–124; BP diastolic 58–76
[~2022-04-27] VITALS: Ht 162.6 cm; Wt 85.0 kg
[2022-04-27] MEDS ORDERED: ceFAZolin INJECTION 2,000 MG in NS (IVPB) 50 ML IV ONE (10:45)
[2022-04-27] MEDS ORDERED: LIDOCAINE/EPI 1%-1:100,000 (XYLOCAINE) 10 ML ONE (10:46)
[2022-04-27] MEDS ORDERED: TRM50T PO (10:51)
--- NOTE | 2022-04-27 10:52 | Discharge Inst-Surgical ---
D/C Lap Instructions-KIDO Reconcile Patient Problems Problems Reviewed?: Yes New, Converted, or Re-Newed RX: RX on Chart Follow Up Appt in 2 weeks Activity as tolerated No driving for 24 hours No driving while on pain medications Incentive Spirometry use every 2 hours while awake Regular Diet Symptoms to Report: Fever over 101 degree F, Nausea/Vomiting Infection Signs and Symptoms to report: Increased redness, Foul odor of wound, Increased drainage Bathing instructions: May shower Operative Area Clean/Dry; Keep incision clean/dry If any problems/questions: Contact your physician or go to Emergency Room AIMEE GUZMAN APRN Apr 27, 2022 10:52
--- NOTE | 2022-04-27 10:52 | Progress Note-Pre Operative ---
Pre-Operative Progress Note Date H&P Reviewed: Apr 27, 2022 Time H&P Reviewed: 10:50 History & Physical: H&P Reviewed, Patient Examed, No changes noted Pre-Operative Diagnosis: Biliary dyskinesia AIMEE GUZMAN LABORATORY TECHNOLOGIST Apr 27, 2022 10:52
[2022-04-27] MEDS ORDERED: ACETAMINOPHEN 325 MG TABLET PO PRN (11:00)
[2022-04-27] MEDS ORDERED: ONDANSETRON 4 MG/2 ML (SDV) Z0FRAN IVP PRN ×2 (11:00→13:15)
[2022-04-27] MEDS ORDERED: morphine INJ 10 MG/ML 1ML (SYR OR VIAL) IVP PRN (11:00)
[2022-04-27] MEDS ORDERED: HYDROcodone/APAP 5 MG/325 MG (LORTAB) TAB PO ONE (11:00)
[2022-04-27] MEDS ORDERED: GLYCOPYRROLATE 0.2 MG/ML (ROBINUL) 2 ML VIAL ONE (11:12)
[2022-04-27] MEDS ORDERED: LIDOCAINE PF 2% 5 ML (XYLOCAINE) VIAL ONE (11:12)
[2022-04-27] MEDS ORDERED: fentaNYL INJ 100 MCG/2 ML AMP ONE (11:12)
[2022-04-27] MEDS ORDERED: MIDAZOLAM 2 MG/2 ML (VERSED) VIAL ONE (11:12)
[2022-04-27] MEDS ORDERED: ONDANSETRON 4 MG/2 ML (SDV) Z0FRAN ONE (11:12)
[2022-04-27] MEDS ORDERED: ROCURONIUM 10 MG/ML 5 ML SYRINGE IV ONE (11:12)
[2022-04-27] MEDS ORDERED: proPOfol 200 MG/20 ML (DIPRIVAN) VIAL IV ONE (11:12)
[2022-04-27] MEDS ORDERED: NEOSTIGMINE (BLOXIVERZ ) 1 MG/1ML 10 ML VIAL ONE (11:13)
[2022-04-27] MEDS ORDERED: FAMOTIDINE 20MG/2ML IV (PEPCID) IV ONE (11:15)
[2022-04-27] MEDS ORDERED: ONDANSETRON 4 MG/2 ML (SDV) Z0FRAN IV ONE (11:15)
[2022-04-27] MEDS: LACTATED RINGERS 1,000 ML IV PRN ×2 (11:34→12:56)
[2022-04-27] MEDS ORDERED: FLUT9.9S NS (12:06)
[2022-04-27] MEDS ORDERED: KETOROLAC 30 MG/ML VIAL ONE (12:51)
--- NOTE | 2022-04-27 12:58 | Progress Note-Post Operative ---
Post-Operative Progess Note Surgeon (s)/Ground Crew Supervisor (s) Surgeon JORGE PALOMO MD Ground Crew Supervisor: jacqueline brandt ENVIRONMENTAL CONSULTANT Pre-Operative Diagnosis Biliary dyskinesia Post-Operative Diagnosis same Procedure & Operative Findings Date of Procedure 04/27/22 Procedure Performed/Findings laparoscopic cholecystectomy Anesthesia Type get Estimated Blood Loss Estimated blood loss (mL): minimal Specimens/Packing Specimens Removed gallbladder JORGE PALOMO MD Apr 27, 2022 12:58
[2022-04-27] MEDS ORDERED: HYDROmorphone 2 MG/ML VIAL (DILAUDID) IV ONE (13:15)
[2022-04-27] MEDS ORDERED: ONDANSETRON 4 MG (ZOFRAN) ORAL DISSOLVE TAB PO ONE (15:30)
--- NOTE | 2022-04-27 19:54 | OPERATIVE REPORT ---
DATE OF SERVICE: 04/27/2022 ATTENDING PRIMARY CARE PHYSICIAN: Dr. Simeon Lakhani. PREOPERATIVE DIAGNOSIS: Symptomatic biliary dyskinesia. POSTOPERATIVE DIAGNOSIS: Symptomatic biliary dyskinesia. PROCEDURE: Laparoscopic cholecystectomy. SURGEON: Jorge Palomo MD COTTON TIPPER: Jason Huynh APRN ANESTHESIA: General endotracheal. ESTIMATED BLOOD LOSS: Minimal. FINDINGS: Slightly distended gallbladder. No gallbladder wall thickening. DISPOSITION: The patient tolerated the procedure well. INDICATIONS: The patient is a 31-year-old female known to us. She has had issues with what she first described as epigastric pain as well as worsening reflux. She had also reported abdominal bloating after eating meals. On EGD she was found to have reflux esophagitis [place] grade B as well as moderate-sized type 1 sliding hiatal hernia approximately 3 cm in size. She was medically treated; however, stated that she continued to have issues even after eating very small amounts of food of early satiety, abdominal bloating as well as crampy pain now more in the right upper abdominal quadrant. We then had her undergo an ultrasound, which did not show any gallstones; however, a HIDA scan was performed, which showed a very low ejection fraction of 12% and severe reproduction of symptoms consistent with biliary dyskinesia. DESCRIPTION OF PROCEDURE: The patient was brought to the operating room, laid supine on the table. After adequate IV pain and sedative medications and general endotracheal intubation, the abdomen was prepped and draped in standard surgical fashion. 0.5% Marcaine with epinephrine was then used to anesthetize the overlying skin in the left upper abdominal quadrant and transverse skin incision made using a 15 blade. An 0 silk suture was applied to the medial aspect of the incision for retraction and a Veress needle inserted with a low opening pressure of 0 mmHg and the abdomen was then insufflated to 15 mmHg pressure. The Veress needle was removed and a 5 mm Xcel trocar placed followed by a 5 mm 45-degree Xcel laparoscope visualized in the peritoneal cavity. A 4-quadrant abdominal exploration was performed. There is a slightly distended gallbladder. No gallbladder wall thickening. Under direct visualization, a supraumbilical 10 mm port was placed after the skin and peritoneal lining were anesthetized using 0.5% Marcaine with epinephrine and a transverse skin incision made using a 15 blade. In a similar manner, a right upper abdominal quadrant 5 mm port was placed. The patient was then placed in reverse Trendelenburg position as well as planed right side up, left side down. The fundus of the gallbladder was then retracted anteriorly and superiorly. The hepatoduodenal ligament was then dissected using blunt dissection as well as electrocautery using the hook instrument as well as the [place] dissector. The entire critical view of safety was identified including the triangle of Calot as well as the cystic duct and artery as the only two structures going to the gallbladder as well as the cystic plate beyond the proximal gallbladder. A timeout was then taken and the cystic duct and artery were then clipped proximally and distally and cut with EndoShears. The gallbladder was then dissected off of the liver bed using cautery on the hook instrument with visualization of good hemostasis as well as no leaking ducts of Luschka. The gallbladder was removed through the 10 mm port site using an EndoCatch bag. The 10 mm port site fascia and peritoneum were then closed under direct visualization using a Ned-Lyly device and 0 Vicryl suture. The abdomen was desufflated and the remaining ports were removed. All skin incisions were closed using 4-0 Monocryl in running subcuticular sutures. Wounds were then cleaned and covered with Dermabond. The patient tolerated the procedure well. We will start IV normal pain medication as well as a clear liquid diet. Once she is tolerating clears, has good pain control with oral pain medications, ambulating well, we will discharge her home where she will be instructed to do no heavy lifting or exertion for the next 2 weeks. Job ID: [id number] DocumentID: [id number] Dictated Date: 04/27/2022 13:04:05 Professor Of Education Date: 04/27/2022 19:53:00 Dictated By: JORGE PALOMO MD [facility]
== END 2022-04-27 15:50 | disposition home or self-care (01) ==
LOC: SDC 10:31
PROVIDERS: ATTEND Surgery
DX: K82.8 Other specified diseases of gallbladder (principal); K81.1 Chronic cholecystitis; K21.9 Gastro-esophageal reflux disease without esophagitis; Z79.899 Other long term (current) drug therapy; E66.9 Obesity, unspecified; Z68.32 Body mass index [BMI] 32.0-32.9, adult
CPT/HCPCS: 84703; 87081

== ENCOUNTER 2023-01-18 21:45 | Emergency (ER) | payer OTHER ==
[~2023-01-18] VITALS: Ht 162.5 cm; Wt 88.0 kg
[~2023-01-18 21:45] MED LIST changes: +FLUT9.9S NS; +TRM50T PO
--- NOTE | 2023-01-18 22:14 | ED Abdominal Pain ---
General Chief Complaint: Abdominal/GI Problems Stated Complaint: ABD DISCOMFORT/LIGHTHEADED/DIZZY Nursing Triage Note: PT AMB TO ED BY POV WITH C/O ULQ PAIN. PT REPORTS SHE HAD FREDY LAST APRIL AND HAS HAD PAIN AROUND HER FREDY INCISION SITE BEGINNING SUNDAY. PT HAS A HIATAL HERNIA. DENIES FEVER, N/V, HAS HAD 3-4 EPISODES OF DIARRHEA BEGINNING LAST NIGHT. Source of Information: Patient History of Present Illness Date Seen by Provider: Jan 18, 2023 Time Seen by Provider: 22:00 Initial Comments PT ARRIVES VIA POV FROM HOME PT C/O LEFT UPPER QUADRANT PAIN SINCE SUNDAY. THE PAIN COMES AND GOES, TODAY THE PAIN IS DIRECTLY OVER ONE OF HER SCARS IN HER LEFT UPPER ABDOMEN FROM PRIOR CHOLECYSTECTOMY SHE HAD CHOLECYSTECTOMY 04/[address] PALOMO. YESTERDAY SHE HAD A SHARP PAIN IN HER LEFT LATERAL CHEST/ AXILLA AREA SHE HAS ALSO HAD INTERMITTENT PAIN OVER HER OTHER INCISIONS FROM CHOLECYSTECTOMY NO NAUSEA/VOMITING SHE HAS HAD DIARRHEA 3-4 TIMES SINCE LAST NIGHT SHE DID NOT HAVE MUCH OF AN APPETITE YESTERDAY, BUT HAD NORMAL APPETITE TODAY SHE ATE CINNAMON STICKS WITH SYRUP AND PEANUT BUTTER, A WRAP WITH FRIED CHICKEN NUGGETS AND KINYARWANDA FRIES AND THEN ATE A PROTEIN BAR AROUND 1800 TONIGHT SHE HAS BEEN URINATING A NORMAL AMOUNT AND ON URINARY SYMPTOMS NO FEVER PT HAS HISTORY OF HIATAL HERNIA AND GERD SHE HAS NOT TAKEN ANYTHING FOR SYMPTOMS SHE HAS NOT SOUGHT CARE UNTIL TONIGHT SHE DENIES ANY OTHER MEDICAL PROBLEMS OR OTHER SURGERIES LMP--1 WEEK AGO. NORMAL. NO CONTROL. PCP: KEMI. TASHI TAVARES. ALSO SEES DR. SAMANTHA CHICAS Allergies and Home Medications Allergies Coded Allergies: No Known Drug Allergies (Unverified , 04/26/22) Patient Home Medication List Esomeprazole Magnesium (Nexium) 20 Mg Capsule.dr, 20 MG PO DAILY, (Reported) Entered as Reported by: LYNDA KENDALL on 04/11/22 1200 Fluticasone Propionate (Flonase Allergy Relief) Unknown Strength [place].susp, Unknown Dose NS DAILY, (Reported) Entered as Reported by: Liz Buckner on 04/27/22 1206 Mv. Min Cmb#50/Iron,Carb/FA (Thrivite Rx Tablet) 29 Mg Iron-1 Mg Tablet, 1 EACH PO DAILY, (Reported) Entered as Reported by: LYNDA KENDALL on 04/11/22 1200 Tramadol HCl (Tramadol HCl) 50 Mg Tablet, 1-2 TAB PO Q4H PRN for PAIN- BREAKTHROUGH Prescribed by: AIMEE GUZMAN on 04/27/22 1051 Review of Systems Review of Systems Constitutional: no symptoms reported Cardiovascular: See HPI Gastrointestinal: See HPI Genitourinary: No Symptoms Reported Musculoskeletal: no symptoms reported Skin: no symptoms reported Psychiatric/Neurological: No Symptoms Reported Endocrine: No Symptoms Reported Hematologic/Lymphatic: No Symptoms Reported Past Qdbligc-Vethdj-Mixggm Hx Patient Social History Tobacco Use?: No Use of E-Cig and/or Vaping dev: No Substance use?: No Alcohol Use?: Yes Alcohol Frequency: Rarely Immunizations Up To Date First/Initial COVID19 Vaccinat: OCTOBER 2020 Second COVID19 Vaccination Alexis: NOVEMBER 2020 Third COVID19 Vaccination Date: OCTOBER 2020 Seasonal Allergies Seasonal Allergies: Yes Past Medical History Surgery/Hospitalization HX: COVID- 19, ACID REFLUX, ANXIETY Surgeries: Yes Gallbladder Respiratory: No Currently Using CPAP: No Currently Using BIPAP: No Cardiac: No Neurological: Yes Headaches /Migraines : No Last Menstrual Period: Jan 08, 2023 Reproductive Disorders: No Genitourinary: Yes UTI-Chronic Gastrointestinal: Yes (HIATAL HERNIA 1"; CHOLECYSTECTOMY 04/2022) Gastroesophageal Reflux, Hiatal Hernia, Gall Bladder Disease Musculoskeletal: No Endocrine: No HEENT: No Cancer: No Psychosocial: Yes Anxiety Integumentary: Yes Psoriasis Blood Disorders: No Physical Exam Vital Signs Vital Signs - First Documented 01/18/23 22:00 Temp 36.9 Pulse 73 Resp 16 B/P (MAP) 119/81 (94) Pulse Ox 99 O2 Delivery Room Air Capillary Refill : Less Than 3 Seconds Height/Weight/BMI Height: '" Weight: lbs. oz. kg; 33.00 BMI Method: General Appearance: WD/WN, no apparent distress, other (DOES NOT APPEAR ILL OR TO BE IN ANY DISCOMFORT OR DISTRESS) HEENT: No scleral icterus (R), No scleral icterus (L) Respiratory: lungs clear, normal breath sounds, no respiratory distress, no accessory muscle use Cardiovascular: regular rate, rhythm, no murmur Gastrointestinal: normal bowel sounds, soft, no organomegaly, no pulsatile mass; No distended, No guarding, No rebound; tenderness (LEFT EPIGASTRIC AREA); No hernia, No mass Extremities: normal inspection, normal capillary refill Back: no CVA tenderness Neurologic/Psychiatric: wire welder II-XII nml as tested, no motor/sensory deficits, alert, normal mood/affect, oriented x 3 Skin: normal color, warm/dry; No rash; other (SCARS FROM PRIOR CHOLECYSTECTOMY ALL WITH NORMAL APPEARANCE. ) Progress/Results/Core Measures Results/Orders Lab Results Laboratory Tests Test 01/18/23 22:10 01/18/23 22:20 Range/Units White Blood Count 8.0 4.3-11.0 10^3/uL Red Blood Count 4.44 3.80-5.11 10^6/uL Hemoglobin 12.7 11.5-16.0 g/dL Hematocrit 39 35-52 % Mean Corpuscular Volume 87 80-99 fL Mean Corpuscular Hemoglobin 29 25-34 pg Mean Corpuscular Hemoglobin Concent 33 32-36 g/dL Red Cell Distribution Width 12.4 10.0-14.5 % Platelet Count 233 130-400 10^3/uL Mean Platelet Volume 10.5 9.0-12.2 fL Immature Granulocyte % (Auto) 0 % Neutrophils (%) (Auto) 45 42-75 % Lymphocytes (%) (Auto) 40 12-44 % Monocytes (%) (Auto) 9 0-12 % Eosinophils (%) (Auto) 5 0-10 % Basophils (%) (Auto) 1 0-10 % Neutrophils # (Auto) 3.6 1.8-7.8 10^3/uL Lymphocytes # (Auto) 3.2 1.0-4.0 10^3/uL Monocytes # (Auto) 0.7 0.0-1.0 10^3/uL Eosinophils # (Auto) 0.4 H 0.0-0.3 10^3/uL Basophils # (Auto) 0.1 0.0-0.1 10^3/uL Immature Granulocyte # (Auto) 0.0 0.0-0.1 10^3/uL Sodium Level 137 135-145 MMOL/L Potassium Level 3.5 L 3.6-5.0 MMOL/L Chloride Level 105 98-107 MMOL/L Carbon Dioxide Level 23 21-32 MMOL/L Anion Gap 9 5-14 MMOL/L Blood Urea Nitrogen 9 7-18 MG/DL Creatinine 0.70 0.60-1.30 MG/DL Estimat Glomerular Filtration Rate 116 BUN/Creatinine Ratio 13 Glucose Level 89 70-105 MG/DL Calcium Level 9.0 8.5-10.1 MG/DL Corrected Calcium 8.8 8.5-10.1 MG/DL Total Bilirubin 0.2 0.1-1.0 MG/DL Aspartate Amino Transf (AST/SGOT) 15 5-34 U/L Alanine Aminotransferase (ALT/SGPT) 17 0-55 U/L Alkaline Phosphatase 56 40-136 U/L Troponin I < 0.028 <0.028 NG/ML Total Protein 7.0 6.4-8.2 GM/DL Albumin 4.3 3.2-4.5 GM/DL Amylase Level 59 25-125 U/L Lipase 60 8-78 U/L Serum Test, Qualitative NEGATIVE NEGATIVE Urine Color YELLOW Urine Clarity CLEAR Urine pH 6.0 5-9 Urine Specific [place] <=1.005 1.016-1.022 Urine Protein NEGATIVE NEGATIVE Urine Glucose (UA) NEGATIVE NEGATIVE Urine Ketones NEGATIVE NEGATIVE Urine Nitrite NEGATIVE NEGATIVE Urine Bilirubin NEGATIVE NEGATIVE Urine Urobilinogen 0.2 < = 1.0 MG/DL Urine Leukocyte Esterase 2+ H NEGATIVE Urine RBC (Auto) NEGATIVE NEGATIVE Urine RBC NONE /HPF Urine WBC 10-25 H /HPF Urine Squamous Epithelial Cells 2-5 /HPF Urine Crystals NONE /LPF Urine Bacteria LARGE H /HPF Urine Casts NONE /LPF Urine Mucus NEGATIVE /LPF Urine Culture Indicated YES My Orders Orders - RUI GANDHI DO Ed Iv/Invasive Line Start (01/18/23 22:02) Monitor-Rhythm Ecg Trace Only (01/18/23 22:02) Amylase (01/18/23 22:02) Cbc With Automated Diff (01/18/23 22:02) Comprehensive Metabolic Panel (01/18/23 22:02) Hcg,Qualitative Serum (01/18/23 22:02) Lipase (01/18/23 22:02) Ua Culture If Indicated (01/18/23 22:02) Ed Iv/Invasive Line Start (01/18/23 22:07) Lactated Ringers (Lr 1000 Ml Iv Solution (01/18/23 22:15) Ekg Tracing (01/18/23 22:07) Troponin I [place] (01/18/23 22:07) Urine Culture (01/18/23 22:20) Ct Abdomen/Pelvis W (01/18/23 22:45) Ed Iv/Invasive Line Start (01/18/23 22:45) Lactated Ringers (Lr 1000 Ml Iv Solution (01/18/23 22:45) Ketorolac Injection (Toradol Injection) (01/18/23 22:45) Pantoprazole Injection (Protonix Injecti (01/18/23 22:45) Iohexol Injection (Omnipaque 350 Mg/Ml 1 (01/18/23 23:30) Received Contrast (Hold Metformin- Contr (01/18/23 23:30) Sodium Chloride Flush (Catheter Flush Sy (01/18/23 23:30) Ns (Ivpb) 100 Ml (Sodium Chloride 0.9% 1 (01/18/23 23:30) Medications Given in ED Current Medications Medications Dose Ordered Sig/Jamilah Route Start Time Stop Time Status Last Admin Dose Admin Iohexol 100 ml ONCE ONCE IV 01/18/23 23:30 01/18/23 23:31 DC 01/18/23 23:23 80 ML Lactated Ringer's 1,000 ml @ 0 mls/hr Q0M ONCE IV 01/18/23 22:15 01/18/23 22:16 DC 01/18/23 22:20 999 MLS/HR Lactated Ringer's 1,000 ml @ 0 mls/hr Q0M ONCE IV 01/18/23 22:45 01/18/23 22:47 DC 01/18/23 23:03 999 MLS/HR Sodium Chloride 10 ml NEEDED PRN IV 01/18/23 23:30 01/18/23 23:24 10 ML Sodium Chloride 100 ml ONCE ONCE IV 01/18/23 23:30 01/18/23 23:31 DC 01/18/23 23:24 80 ML Vital Signs/I&O 01/18/23 22:00 Temp 36.9 Pulse 73 Resp 16 B/P (MAP) 119/81 (94) Pulse Ox 99 O2 Delivery Room Air 01/19/23 00:00 Intake Total 1000 ml Balance 1000 ml Blood Pressure Mean: 94 Progress Progress Note : Progress Note GIVEN: -IV FLUIDS -TORADOL -PROTONIX -ROCEPHIN LABS UNREMARKABLE EXCEPT FOR UTI Initial ECG Impression Date: Jan 18, 2023 Initial ECG Impression Time: 22:25 Initial ECG Rate: 71 Initial ECG Rhythm: Normal Sinus Initial ECG Intervals: Normal Initial ECG Impression: Normal Initial ECG Comparisson: No Previous ECG Available Comment INTERPRETED BY ME Departure Impression Primary Impression: Urinary tract infection Additional Impression: Epigastric abdominal pain Disposition: 01 HOME, SELF-CARE Condition: Stable Departure-Patient Inst. Decision time for Depature: 01:31 Referrals: JACLYN MCKEON CHAD C MD (PCP/Family) Primary Care Physician [facility] Patient Instructions: Abdominal Pain, Adult ED, Acid Reflux, Adult and Adolescent ED, Urinary Tract Infection, Adult (DC), Irritable Bowel Syndrome (DC) Add. Discharge Instructions: CLEAR LIQUIDS--WATER, BROTH, JELLO, GATORADE BRATS DIET--BANANAS, RICE, APPLESAUCE, TOAST, SALTINES CONTINUE OMEPRAZOLE DAILY FOLLOW UP WITH [facility] AND WITH DR. DELEON OR SURGEON OF CHOICE FOR FURTHER CARE--CALL IN THE MORNING TO SCHEDULE AN APPOINTMENT All discharge instructions reviewed with patient and/or family. Voiced understanding. Scripts Sucralfate (Carafate) 1 Gram Tablet 1 GM PO QID, #60 TAB Prov: RUI GANDHI DO 01/19/23 Nitrofurantoin Monohyd/M-Cryst (Macrobid 100 mg Capsule) 100 Mg Capsule 1 TAB PO BID, #20 CAP Prov: RUI GANDHI DO 01/19/23 RUI GANDHI DO Jan 18, 2023 22:14
[2023-01-18] MEDS ORDERED: LACTATED RINGERS 1,000 ML IV ONE ×2 (22:15→22:45)
[2023-01-18 22:22] LABS: BASOPHILS # (AUTO) 0.1 10^3/uL (0.0-0.1); BASOPHILS % (AUTO) 1 % (0-10); EOSINOPHILS # (AUTO) 0.4 10^3/uL (0.0-0.3); EOSINOPHILS % (AUTO) 5 % (0-10); HEMATOCRIT 39 % (35-52); HEMOGLOBIN 12.7 g/dL (11.5-16.0); LYMPHOCYTES # (AUTO) 3.2 10^3/uL (1.0-4.0); LYMPHOCYTES % (AUTO) 40 % (12-44); MEAN CORPUSCULAR HEMOGLOBIN 29 pg (25-34); MEAN CORPUSCULAR HGB CONC 33 g/dL (32-36); MEAN CORPUSCULAR VOLUME 87 fL (80-99); MEAN PLATELET VOLUME 10.5 fL (9.0-12.2); MONOCYTES # (AUTO) 0.7 10^3/uL (0.0-1.0); MONOCYTES % (AUTO) 9 % (0-12); NEUTROPHILS # (AUTO) 3.6 10^3/uL (1.8-7.8); NEUTROPHILS % (AUTO) 45 % (42-75); PLATELET COUNT 233 10^3/uL (130-400)
[2023-01-18 22:26] LABS: BILIRUBIN,URINE NEGATIVE (NEGATIVE); CLARITY,URINE CLEAR; COLOR,URINE YELLOW; GLUCOSE, URINE (UA) NEGATIVE (NEGATIVE); KETONES,URINE NEGATIVE (NEGATIVE); LEUKOCYTE ESTERASE ,URINE 2+ (NEGATIVE); NITRITE,URINE NEGATIVE (NEGATIVE); PROTEIN,URINE NEGATIVE (NEGATIVE)
[2023-01-18 22:31] LABS: ALBUMIN 4.3 GM/DL (3.2-4.5); CHLORIDE 105 MMOL/L (98-107); POTASSIUM 3.5 MMOL/L (3.6-5.0); SODIUM 137 MMOL/L (135-145)
[2023-01-18 22:32] LABS: AMYLASE 59 U/L (25-125)
[2023-01-18 22:34] LABS: GLUCOSE 89 MG/DL (70-105)
[2023-01-18 22:35] LABS: CARBON DIOXIDE 23 MMOL/L (21-32)
[2023-01-18 22:36] LABS: BILIRUBIN,TOTAL 0.2 MG/DL (0.1-1.0)
[2023-01-18 22:37] LABS: BACTERIA,URINE LARGE /HPF
[2023-01-18 22:37] LABS: ALKALINE PHOSPHATASE 56 U/L (40-136); GFR ESTIMATED 116
[2023-01-18 22:38] LABS: BUN/CREATININE RATIO 13
[2023-01-18 22:40] LABS: ALANINE AMINOTRANSFERASE 17 U/L (0-55)
[2023-01-18 22:41] LABS: LIPASE 60 U/L (8-78)
[2023-01-18] MEDS ORDERED: PANTOPRAZOLE 40 MG (PROTONIX) VIAL IV ONE (22:45)
[2023-01-18] MEDS ORDERED: KETOROLAC 30 MG/ML VIAL IVP STA (22:45)
[2023-01-18] MEDS ORDERED: NS 100 ML (IVPB) BAG IV ONE (23:30)
[2023-01-18] MEDS ORDERED: CATHETER FLUSH 10 ML SYR IV PRN (23:30)
[2023-01-18] MEDS ORDERED: IOHEXOL 350 MG/ML 100 ML (OMNIPAQUE 350) VIAL IV ONE (23:30)
[2023-01-18] MEDS ORDERED: HOLD METFORMIN - RECEIVED CONTRAST 20 ML VIAL IV SCH (23:30)
[2023-01-19] MEDS ORDERED: SUCR1TAB36 PO (01:34)
[2023-01-19] MEDS ORDERED: NITR-65 PO (01:34)
[2023-01-19 01:38] VITALS: BP 121/73
--- NOTE | 2023-01-19 08:43 | Diagnostic Imaging Report ---
PROCEDURE: CT abdomen and pelvis with contrast. TECHNIQUE: Multiple contiguous axial images were obtained through the abdomen and pelvis after administration of intravenous contrast. Auto Exposure Controls were utilized during the CT exam to meet ALARA standards for radiation dose reduction. All CT scans use one or more of the following dose optimizing techniques: automated exposure control, MA and/or KvP adjustment based on patient size and exam type or iterative reconstruction. INDICATION: Upper abdominal pain The lung bases are clear. There is a hemangioma in the lateral segment of the left lobe of liver adjacent to the falciform ligament. This measures 2.4 cm in diameter. Liver otherwise unremarkable. Portal vein is patent. Gallbladder surgically absent. Pancreas is normal. Common duct is not dilated. Spleen is not enlarged. Kidneys and adrenals appear normal. Small bowel is not dilated. Appendix is normal. Colon is unremarkable. Uterus and adnexa are unremarkable. There is a small amount of free fluid. An involuting cyst posterior to the uterus likely of right ovarian origin. IMPRESSION: Small amount of free fluid with involuting cyst. This may be a recently ruptured cyst. Incidental finding of a left lobe hepatic hemangioma. CT abdomen and pelvis otherwise unremarkable. I agree with preliminary interpretation. Dictated by: Dictated on workstation # [id number]
== END 2023-01-19 01:48 | disposition home or self-care (01) ==
LOC: EDUNIT# 21:45 → ER 21:48
DX: N39.0 Urinary tract infection, site not specified (principal); Z90.49 Acquired absence of other specified parts of digestive tract; Z86.16 Personal history of COVID-19
CPT/HCPCS: 36415; 74177; 80053; 81000; 82150; 83690; 84484; 84703; 85025; 87077; 87088; 93005; 93041

== ENCOUNTER 2023-01-31 06:54 | Outpatient (CLI) | payer OTHER ==
[~2023-01-31] VITALS: Ht 162.6 cm; Wt 88.5 kg
[~2023-01-31 06:54] MED LIST changes: +NITR-65 PO; +SUCR1TAB36 PO
[2023-01-31] MEDS ORDERED: OMEP20TA56 PO (11:43)
== END 2023-01-31 11:47 | disposition home or self-care (01) ==
LOC: PREOP 06:54
PROVIDERS: ATTEND Surgery
DX: Z01.818 Encounter for other preprocedural examination (principal)

== ENCOUNTER 2023-02-08 11:49 | Day surgery (SDC) | payer OTHER ==
[~2023-02-08] VITALS: Ht 162.6 cm; Wt 88.5 kg
[~2023-02-08 11:49] MED LIST changes: +OMEP20TA56 PO
[2023-02-08] MEDS ORDERED: LACTATED RINGERS 1,000 ML IV STA (11:57)
[2023-02-08] MEDS ORDERED: HURRICAINE EXT TUBE (BENZOCAINE) XX PRN (12:00)
--- NOTE | 2023-02-08 12:03 | Progress Note-Pre Operative ---
Pre-Operative Progress Note Date H&P Reviewed: Feb 08, 2023 Time H&P Reviewed: 12:03 History & Physical: H&P Reviewed, Patient Examed, No changes noted Pre-Operative Diagnosis: epigastric pain KENNY DELEON DO Feb 08, 2023 12:03
[2023-02-08 12:13] VITALS: BP 113/67
[2023-02-08] MEDS ORDERED: MIDAZOLAM INJ 2 MG/2 ML VIAL ONE (12:37)
[2023-02-08] MEDS ORDERED: proPOfol 200 MG/20 ML (DIPRIVAN) VIAL IV ONE (12:37)
--- NOTE | 2023-02-08 12:54 | Progress Note-Post Operative ---
Post-Operative Progess Note Surgeon (s)/Floor Covering Printer (s) Surgeon KENNY DELEON DO Floor Covering Printer: none Pre-Operative Diagnosis epigastric pain Post-Operative Diagnosis duodenitis gastritis small hiatial hernia Procedure & Operative Findings Date of Procedure 02/08/23 Procedure Performed/Findings egd with biopsies Anesthesia Type per ORDERLY Estimated Blood Loss Estimated blood loss (mL): none Specimens/Packing Specimens Removed duodenum, body of stomach, antrum of stomach, ge KENNY DELEON DO Feb 08, 2023 12:54
[2023-02-08 12:55] VITALS: BP 100/61
[2023-02-08] MEDS ORDERED: SUCR1TAB36 PO (12:55)
[2023-02-08] MEDS ORDERED: PANT40TA2 PO (12:55)
--- NOTE | 2023-02-08 12:57 | Discharge Inst-Simple/Standard ---
Discharge Inst-Standard Discharge Medications New, Converted or Re-Newed RX: Transmitted to Pharmacy Patient Instructions/Follow Up Plan of Care/Instructions/FU: janice 2 weeks Activity as Tolerated: Yes Discharge Diet: Regular Diet (gastritis diet) KENNY DELEON DO Feb 08, 2023 12:57
[2023-02-08 13:00] VITALS: BP 112/70
[2023-02-08 13:05] VITALS: BP 118/76
--- NOTE | 2023-02-08 13:27 | Anesthesia-General Post-Op ---
MAC Patient Condition Mental Status/LOC: Same as Preop Cardiovascular: Satisfactory Nausea/Vomiting: Absent Respiratory: Satisfactory Pain: Controlled Complications: Absent Post Op Complications Complications None Follow Up Care/Instructions Patient Instructions None needed. Anesthesiology Discharge Order Discharge Order Patient is doing well, no complaints, stable vital signs, no apparent adverse anesthesia problems. No complications reported per nursing. EVON THOMPSON CRNA Feb 08, 2023 13:27
[2023-02-08 13:45] VITALS: BP 118/76
--- NOTE | 2023-02-08 17:50 | OPERATIVE REPORT ---
DATE OF SERVICE: 02/08/2023 PREOPERATIVE DIAGNOSES: Epigastric abdominal pain. POSTOPERATIVE DIAGNOSES: Duodenitis, gastritis, small hiatal hernia. SURGEON: Kenny Gardner DO ANESTHESIA: Per PAINTER SHIP[employer]ARD. ESTIMATED BLOOD LOSS: None. COMPLICATIONS: None. SPECIMENS: Duodenum body, antrum, GE junction. PROCEDURES: EGD with biopsies. INDICATIONS: The patient is a 32-year-old female with epigastric abdominal pain. She understands risks and benefits of procedure and wished to proceed. Consent was signed and in chart. DESCRIPTION OF PROCEDURE: The patient was taken to endoscopy suite, placed in left lateral recumbent position. Timeout was performed. Scope was inserted in the mouth, down the esophagus, stomach and duodenum without difficulty. No polyps, masses or ulcerations within the second portion of the duodenum. First portion of duodenum had some slight erythematous changes consistent with duodenitis. Biopsy was obtained. Scope was then continuously retracted back into the stomach where it was further insufflated. No polyps, masses or ulcerations. Slight erythematous changes present. Biopsy of the antrum and body were obtained. Scope was retroflexed noting a small hiatal hernia, no other pathology. Scope was returned to its normal position, slowly withdrawn until distal esophagus. Biopsy of GE junction was obtained. No polyps, masses or ulcerations. Scope was slowly retracted back until completely removed. The patient tolerated the procedure well without complications, taken to recovery room in stable condition. RECOMMENDATIONS: The patient will stop omeprazole and start Protonix 40 mg daily. Await biopsy results. She will follow up in 2 weeks. Further recommendation pending symptoms and biopsy results. Job ID: [id number] DocumentID: [id number] Dictated Date: 02/08/2023 12:54:14 Cage Tender Date: 02/08/2023 17:49:00 Dictated By: KENNY GARDNER DO
== END 2023-02-08 13:45 | disposition home or self-care (01) ==
LOC: ENDO 11:49
PROVIDERS: ATTEND Surgery
DX: K29.70 Gastritis, unspecified, without bleeding (principal); K31.89 Other diseases of stomach and duodenum; K21.9 Gastro-esophageal reflux disease without esophagitis; K44.9 Diaphragmatic hernia without obstruction or gangrene; Z79.899 Other long term (current) drug therapy
CPT/HCPCS: 84703

== ENCOUNTER → 2023-02-12 | Outpatient (CLI) | payer OTHER ==
[~2023-02-12] MED LIST changes: +BARIUM for suspension 96% w/w (Vanilla Silq Medium Density) PO ONE; +BARIUM for suspension 98% w/w (Vanilla Silq High Density) PO ONE
--- NOTE | 2023-02-12 12:17 | Diagnostic Imaging Report ---
INDICATION: Hernia. Patient ingested effervescent crystals as well as thin and thick barium and imaging of the esophagus was performed in multiple obliquities. 39 seconds of fluoroscopic time was utilized. Reference air Kerma is 15.2 mg. 33 images were obtained. Lap Hand Tool radiograph of the chest is unremarkable. Esophagus has a smooth contour. No mass or stricture is identified. No hiatal hernia or gastroesophageal reflux was demonstrated. IMPRESSION: Unremarkable esophagram. Dictated by: Dictated on workstation # [id number]
== END ==
LOC: RAD 11:00
PROVIDERS: ATTEND Surgery
DX: K44.9 Diaphragmatic hernia without obstruction or gangrene (principal)
CPT/HCPCS: 74220